=== PATIENT | male | born 1950 | race Caucasian/White ===

== ENCOUNTER 2016-10-08 15:07 | Emergency (ER) | payer MEDICARE, OTHER ==
[2016-10-08] MEDS ORDERED: diphenhydrAMINE 25 MG CAPSULE PO STA (15:23)
[2016-10-08] MEDS ORDERED: predniSONE 20 MG TABLET PO STA (15:23)
--- NOTE | 2016-10-08 15:24 | ED Physician Documentation ---
PD HPI SKIN - Stated complaint Stated Complaint: ALLERGIC REACTION - Chief complaint Chief Complaint: Allergic Rx - History obtained from History obtained from: Patient - History of Present Illness Timing - onset: Other (He has recurrent angioedema. Previously was on lisinopril but has had episodes despite being taken off lisinopril several years ago. Has a few times a year. When he has it he takes prednisone which helps but he is up here camping and doesn't have any. He develops lower lip swelling on the left today without posterior or pharyngeal symptoms, shortness of breath, or rash. This is similar prior episodes. There is no familial component.) Review of Systems Constitutional: denies: Fever, Chills Ears: reports: Reviewed and negative Nose: denies: Rhinorrhea / runny nose, Congestion Respiratory: denies: Dyspnea, Cough PD PAST MEDICAL HISTORY - Present Medications Home Medications: Ambulatory Orders Medication Instructions Recorded Confirmed Bp Med 10/08/16 Loratadine [Allergy Relief] 10/08/16 Metoprolol Succinate 10/08/16 oxyCODONE ER [OxyCONTIN] 10/08/16 predniSONE [Deltasone] 60 mg PO DAILY 5 Days 10/08/16 - Allergies Allergies/Adverse Reactions: Allergies Allergy/AdvReac Type Severity Reaction Status Date / Time lisinopril Allergy Edema Verified 10/08/16 15:15 PD ED PE NORMAL - Vitals Vital signs reviewed: Yes - General General: Alert and oriented X 3, No acute distress - HEENT HEENT: PERRL, EOMI, Other (He has isolated angioedema of the left lower lip without posterior oral pharyngeal angioedema.) - Neck Neck: Supple, no meningeal sign, No bony TTP - Neuro Neuro: Alert and oriented X 3, Normal speech - Psych Psych: Normal mood, Normal affect Results - Vitals Vitals: Vital Signs - 24 hr 10/08/16 15:12 Temperature 36.3 C L Heart Rate 59 L Respiratory 16 Rate Blood Pressure 148/106 H O2 Saturation 96 Oxygen O2 Source Room air Departure - Departure Disposition: 01 Home, Self Care Clinical Impression: Angioectopia Condition: Good Record reviewed to determine appropriate education?: Yes Instructions: ED Angioedema Prescriptions: predniSONE [Deltasone] 60 mg PO DAILY 5 Days Comments: Take Benadryl, available [id number] as needed for symptoms, return if worse. Your blood pressure was elevated today on check in to the emergency department. This does not mean that you have hypertension, it is a common phenomenon to check into the emergency department and have elevated blood pressure. I recommend that you see your primary care physician within the week to have it rechecked when you're feeling better.
[2016-10-08] MEDS ORDERED: diphenhydrAMINE 25 MG CAPSULE PO ONE (15:25)
[2016-10-08] MEDS ORDERED: predniSONE 20 MG TABLET ONE (15:26)
[2016-10-08 15:32] VITALS: BP 167/76
== END 2016-10-08 15:30 | disposition home or self-care (01) ==
LOC: ED 15:07
DX: T78.3XXA Angioneurotic edema, initial encounter (principal); R03.0 Elevated blood-pressure reading, without diagnosis of hypertension
CPT/HCPCS: 99283; A9270; J7512